=== PATIENT | female | born 1970 | race Caucasian/White ===

== ENCOUNTER 2021-11-19 08:07 | Emergency (ER) | payer BC ==
[~2021-11-19] VITALS: Ht 160 cm; Wt 68.0 kg
[2021-11-19] MEDS ORDERED: ZITHROMAX250 MG PO (08:47)
== END 2021-11-19 08:50 | disposition home or self-care (01) ==
LOC: FSED 08:36
DX: R50.9 Fever, unspecified (principal); U07.1 COVID-19; J20.9 Acute bronchitis, unspecified
CPT/HCPCS: 83518; 87400; 99282; U0002